=== PATIENT | male | born 1955 | race Caucasian/White ===

== ENCOUNTER 2016-10-26 08:50 | Day surgery (SDC) | payer MEDICARE, OTHER ==
--- NOTE | ~2016-10-26 | EGD ---
EGD REPORT [facility] [address] [address] NAME: DEISY PABON : 51 STATUS : REG [facility]#: [id number] AGE: 61 ADM/REG DATE : 10/26/16 MR#: [id number] REPORT SERV DATE: 10/26/16 DICTATED BY: BERTRAND MCCORMACK. DATE: 10/26/16 REPORT STATUS : Draft TRANSCRIBED BY: [facility] DATE: 10/26/16 Endoscopy Center Patient Name: Deisy Pabon Date of : 1955 Attending MD: BERTRAND MCCORMACK MD Procedure Date No Time: 10/26/2016 Procedure: Upper GI endoscopy Indications: Cirrhosis rule out esophageal varices. Portal HTN; splenomegaly; Omeprazole/propranolol. Patient Profile: Informed consent was obtained from the patient by me prior to the procedure. Risks, benefits, and alternatives were discussed including the risk of bleeding, perforation, infection, reaction to medicine, missed lesion, and cardiopulmonary complications. Referring MD: CATHY BAILEY Medicines: Monitored Anesthesia Care Complications: No immediate complications. Procedure: Pre-Anesthesia Assessment: - ASA Grade Assessment: III - A patient with severe systemic disease. After obtaining informed consent, the endoscope was passed under direct vision. Throughout the procedure, the patient's blood pressure, pulse, and oxygen saturations were monitored continuously. The GIF [id number] was introduced through the mouth, and advanced to the second part of duodenum. The endoscope was withdrawn with careful examination all mucosal surfaces including retroflexion stomach. The upper GI endoscopy was accomplished without difficulty. The patient tolerated the procedure well. Findings: The examined duodenum was normal. The gastric antrum was normal. Mild portal hypertensive gastropathy was found in the cardia, in the gastric fundus and in the gastric body. Incidental small benign-appearing polyps body, not removed. The examined esophagus was normal, no varices. Impression: - Normal examined duodenum. - Normal antrum. - Portal hypertensive gastropathy. - Normal esophagus. Recommendation: - Patient has a contact number available for EGD REPORT [address] [address] NAME: DEISY PABON : [birth year] STATUS : REG [facility]#: [id number] AGE: 61 ADM/REG DATE : 10/26/16 MR#: [id number] REPORT SERV DATE: 10/26/16 DICTATED BY: BERTRAND MCCORMACK DATE: 10/26/16 REPORT STATUS : Draft TRANSCRIBED BY: [facility] DATE: 10/26/16 emergencies. The signs and symptoms of potential delayed complications were discussed with the patient. Return to normal activities tomorrow. Written discharge instructions were provided to the patient. - Regular diet. - Continue present medications. - Repeat EGD one year Mem [facility] re: cirrhosis. - Schd office visit 3 months; he will see ENT. Procedure Code(s): --- Professional --- 78630, Esophagogastroduodenoscopy, flexible, transoral; diagnostic, including collection of specimen(s) by brushing or washing, when performed (separate procedure) Diagnosis Code(s): --- Professional --- K76.6, Portal hypertension K31.89, Other diseases of stomach and duodenum K74.60, Unspecified cirrhosis of liver CPT copyright 2013 [employer]. All rights reserved. The codes documented in this report are preliminary and upon senior group manager review may be revised to meet current compliance requirements. BERTRAND MCCORMACK MD 10/26/2016 10:43 AM This report has been signed electronically. Number of Addenda: 0 Note Initiated On: 10/26/2016 10:17 AM Scope Withdrawal Time 0 hours 0 minutes 0 seconds [address] [address]
[~2016-10-26 08:50] MED LIST: ALEVE220 MG PO; BELVIQ PO; BUM2 PO; CYANO1000T PO; DYAZIDE1 CAP PO; FARXIGA5 PO; GERITOL PO; GLUCOTROL5 PO; GLUCPH PO; GLUCXL2.5 PO; GLUCXL5 PO; I10 PO; LYRICA25 PO; MSCONT15 PO; MULTIVITAMI1 PO; NEUR100 PO; NEUR300 PO; OCALIVA PO; PERCOCET1 TA2 PO; PREVALITE4 G1 PO; PRILO PO; PRILOSEC40 MG PO; SPIRO25 PO; VICTOZA INJ; VICTOZA18 MG/3 ML SC; VITA10 PO; VITE PO; ZOL50 PO
== END 2016-10-26 23:59 | disposition home or self-care (01) ==
LOC: DMU 08:50
PROVIDERS: Internal Medicine Gastroenterology
PROC: 0DJ08ZZ Inspection of Upper Intestinal Tract, Via Natural or Artificial Opening Endoscopic (ICD-10-PCS; principal; 2016-10-26 09:30)
DX: K76.6 Portal hypertension (principal); K31.89 Other diseases of stomach and duodenum; K74.60 Unspecified cirrhosis of liver; E11.9 Type 2 diabetes mellitus without complications; G47.33 Obstructive sleep apnea (adult) (pediatric); K21.9 Gastro-esophageal reflux disease without esophagitis; I10 Essential (primary) hypertension; D64.9 Anemia, unspecified; Z90.49 Acquired absence of other specified parts of digestive tract
CPT/HCPCS: 82962

== ENCOUNTER 2016-12-07 13:13 | Inpatient (IN) | payer MEDICARE, OTHER ==
--- NOTE | ~2016-12-07 | OP ---
Record Of Operation [facility] [address] [place]. [address] NAME: DEISY WATKINS : 51 STATUS : DIS IN PAT#: [id number] AGE: 61 ADM/REG DATE : 12/07/16 MR#: [id number] REPORT SERV DATE: 12/10/16 DICTATED BY: ISA FISHMAN DATE: 12/09/16 REPORT STATUS : Draft TRANSCRIBED BY: MODL DATE: 12/09/16 DATE OF PROCEDURE: 12/09/2016 PROCEDURE: Intubation. REASON: Hypoxic respiratory failure. The patient is being transferred to [facility] for consideration of liver transplant. Family and patient both are aware of the need for intubation and are agreeable to the procedure. The patient has severe liver and kidney disease. The patient was monitored throughout the procedure and maintained an O2 saturation greater than 92%. He was pre-oxygenated for 100% oxygen. A total of 40 mg of IV etomidate followed by 25 mg of Nimbex or 2.5 mL were given for intubation. A GlideScope was used with a #4 blade. Vocal cords were well visualized. A #8 endotracheal tube was placed on the first attempt without difficulty. Bilateral breath sounds were heard. CO2 sensor changed appropriate color from blue to yellow, and chest x-ray is pending for confirmation of good placement of the endotracheal tube. /NISSA Isa Fishman M.D. / [id number] CC: MD Adri Aguilarh Melvi
--- NOTE | ~2016-12-07 | CN ---
Consultation Report [facility] [address] [place]. [address] NAME: DEISY WATKINS : 51 STATUS : ADM IN PAT#: [id number] AGE: 61 ADM/REG DATE : 12/07/16 MR#: [id number] REPORT SERV DATE: 12/08/16 DICTATED BY: DANIEL PEHLAN DATE: 12/08/16 REPORT STATUS : Draft TRANSCRIBED BY: MODL DATE: 12/08/16 CONSULTATION DATE OF CONSULTATION: HISTORY OF PRESENT ILLNESS: This is a 61-year-old white male, who was admitted on 12/07/2016 with complaints of diarrhea and some bloody stools and low blood pressure and not feeling well for the past several weeks. He is a patient Dr. Rajesh Flores. Because he has a diagnosis of GUTIERREZ and liver cirrhosis, he was on a study drug called Ocalivia, and he was under empiric trial. This drug had to get stopped while a couple of weeks ago. He was having problems of itchiness and elevated bilirubin. Despite active intervention by Dr. Flores, bilirubin still continued to arise. He was supposed to get a colonoscopy right before he had to come in to be admitted to the hospital, so that has not been done yet. He was in the IMCU when we were asked to take over care because of worsening hypotension, worsening renal failure with no urine output, shock liver, and metabolic acidosis. Dr. Flores had been in communication with the human resources assistant, and they are agreeing to assess him for dialysis/CRRT, and Dr. Flores also has been trying to get him transferred to a liver transplant center. For careful and thorough details of the outpatient management of cirrhosis, please see Dr. Flores's consult note. REVIEW OF SYSTEMS: The patient denies any current headache, dizziness, or syncope. No chest pain or cough but does have some short shortness of breath but no worse compared to the last couple of days. However, the nurse did have to escalate oxygen requirements from just a couple of liters of oxygen to the point where he is now on a 50% Venti mask. He was only saturating 85% on 6 L/minute prior to this. The patient states that his diarrhea slowed down, but he still has some nausea and abdominal pain. He has diffuse edema and jaundice. PAST MEDICAL HISTORY: Liver cirrhosis, GUTIERREZ, type 2 diabetes. PAST SURGICAL HISTORY: Knee replacement and appendectomy. ALLERGIES: NO KNOWN DRUG ALLERGIES. MEDICATIONS: Reviewed. SOCIAL HISTORY: No tobacco, alcohol, or illicit drugs. FAMILY HISTORY: Mother diabetes, father hypertension. Current IV drips include D5 half-normal with two amps of bicarb, dopamine drip, Levophed drip. PHYSICAL EXAMINATION: Consultation Report [address] [place]. [address] NAME: DEISY WATKINS : 51 STATUS : ADM IN PAT#: [id number] AGE: 61 ADM/REG DATE : 12/07/16 MR#: [id number] REPORT SERV DATE: 12/08/16 DICTATED BY: DANIEL PHELAN DATE: 12/08/16 REPORT STATUS : Draft TRANSCRIBED BY: NISSA DATE: 12/08/16 VITAL SIGNS: Per nursing flow sheet. GENERAL: Easily arousable. He was sleeping. He is not in any current distress. SKIN: Jaundiced. NEURO: GCS 15. Moves all extremities, cooperative. ENT: Normocephalic, atraumatic. Mallampati class 4. HEART: Regular rate and rhythm. No murmurs. LUNGS: A few coarse breath sounds at lung bases. No wheezes. No accessory muscle use. GI: Obese, soft, nontender, nondistended. No guarding, rebound, or rigidity. : Lara catheter in place with essentially no urine. EXTREMITIES: +2 bilateral pitting leg edema. LABORATORY DATA: Labs and radiology films reviewed up to this point. ASSESSMENT AND PLAN: 1. Hypotension. 2. Acute hypoxic respiratory failure. 3. 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 4. Acute liver injury. 5. Acute kidney injury with anuria. 6. Metabolic acidosis. 7. Hyponatremia. 8. Type 2 diabetes. The patient having worsening liver injury and renal injury. Hepatopulmonary syndrome is of heightened concern. The patient is going to need to be put on CRRT for continuous renal clearance. Nephrology has been notified. We will consult Vascular for access. He is currently on Levophed and dopamine. We will titrate drips to keep MAP greater than 65. He is also on midodrine as well. Dr. Flores was trying to get the patient over to a liver transplant center for further care and consideration for transplant. He is on Rocephin and vancomycin basically empirically. He has had no fevers. He shows no peritoneal signs to suggest peritonitis at this point. We will check a procalcitonin level. Blood cultures are already pending from yesterday. The patient is still on the bicarb drip. However, I will get two more amps of bicarb to push given his low serum bicarbonate on his metabolic panel. The patient is okay with intubation if needed. 35 minutes of critical care time. CEP/MODL Daniel Phelan, DO / [id number]
--- NOTE | ~2016-12-07 | OP ---
Record Of Operation [facility] [address] [place]. [address] NAME: DEISY WATKINS : 51 STATUS : ADM IN [facility]#: [id number] AGE: 61 ADM/REG DATE : 12/07/16 MR#: [id number] REPORT SERV DATE: 12/09/16 DICTATED BY: DOMINICK SILVERMAN DATE: 12/08/16 REPORT STATUS : Draft TRANSCRIBED BY: MODL DATE: 12/08/16 DATE OF PROCEDURE: 12/08/2016 PREOPERATIVE DIAGNOSIS: Acute kidney injury. POSTOPERATIVE DIAGNOSIS: Acute kidney injury. PROCEDURE: Right IJ Vas-Cath. SURGEON: Dominick Silverman M.D. COMMUNICATION LECTURER: None. ANESTHESIA: Local. INDICATIONS: The patient is a 61-year-old gentleman, who came in with liver failure and has acute kidney injury. He needs dialysis, so he was consented for intervention. DESCRIPTION OF PROCEDURE: After informed consent was obtained, the patient's right neck was prepped and draped in usual sterile fashion. Ultrasound-guided access was obtained of the right internal jugular vein. The ultrasound image was documented on the chart. I passed a wire centrally. I dilated the tract. I placed a 15-cm Vas-Cath. It was sutured in place. It was aspirated and flushed. A sterile dressing was applied. The patient tolerated the procedure well without any intraprocedural complications noted. A chest x-ray was ordered to confirm proper placement. GROOVING MACHINE OPERATOR/NISSA Dominick Silverman M.D. / [id number] CC: MD Adri Aguilarh DO Melvi
--- NOTE | ~2016-12-07 | CN ---
Consultation Report [facility] [address] [place]. [address] NAME: DEISY PABON : 51 STATUS : ADM IN PAT#: [id number] AGE: 61 ADM/REG DATE : 12/07/16 MR#: [id number] REPORT SERV DATE: 12/08/16 DICTATED BY: RAJESH FLORES DATE: 12/07/16 REPORT STATUS : Draft TRANSCRIBED BY: MODL DATE: 12/07/16 CONSULT DATE OF CONSULTATION: 12/07/2016 REASON: Acute liver failure with acute kidney injury. HISTORY: Mr. Pabon is a 61-year-old male, known to me for last few years. Has a GUTIERREZ-related cirrhosis. His cirrhosis had been well compensated until recently. When I saw him last time in August. His functions with stable bilirubin was a bit up since he was in trial by [employer] on medication from [employer] called Ocjames. At that time, bilirubin was little bit elevated. He was itching. I prescribed him Questran, which was apparently rejected due to trial protocol. I did not see him since then. Then, he came to see me about a week ago when I received call from Dr. Gonzalez's office that his bilirubin was 19. After that appointment, I started him on prednisone 20 mg suspecting drug-induced liver injury. In the meantime, he had MRI and MRCP done a couple of days prior to that, which did not show any obstruction or tumor. At that time, he was complaining of diarrhea and with the fear of dehydration, we discontinued his diuretic. His renal function was normal with creatinine of about 0.6 to 0.9. We received the lab work. Bilirubin was 31. Called him and increased his prednisone to 40 mg, which he has been for about one week. Came to see me in the office yesterday. After starting prednisone, his itching completely cleared, so he stopped his Prevalite also. In the meantime he remained on his diabetic medication, but according to , he continued having diarrhea. Stool studies were negative at Dr. Gonzalez's office for C diff, parasite, and culture. He was scheduled for colonoscopy today. I received a lab result, which indicated bilirubin was 35 and creatinine was 6 with bicarb 12, worsening liver functions. INR was 2.4. I called the patient. He was in the endoscopy suite for colonoscopy by Dr. Gonzalez. Called and discussed with Dr. Gonzalez. Suggested need to go to the emergency room and deferred colonoscopy decision to Dr. Gonzalez. Colonoscopy was canceled and he was sent to the emergency room, where his lab work showed creatinine of 7.9 and lipase of 12,000 with bilirubin of 37. CT scan without contrast was done, which showed ascites and there was no evidence of obstruction. I discussed with ER physician. Recommended giving albumin, 50 g Sandostatin, and IV fluids. The patient was admitted under Hospitalist Service. Discussed with Dr. aSntiago and started Sandostatin three times a day with midodrine and IV albumin. Deferred antibiotic at this point, and I also called [facility] and discussed with Dr. Dan, updated his situation, and planning to transfer him there tomorrow if the patient is stable. Overall, he has been about the same for the last couple of weeks. All the symptoms have been going on for about a month or so, but he did not seek any attention until 10 days ago when he had blood work when abnormality was noticed. The patient is also complaining of bright red blood per rectum due to diarrhea and suspected Consultation Report [address] [place]. [address] NAME: DEISY PABON : 51 STATUS : ADM IN [facility]#: [id number] AGE: 61 ADM/REG DATE : 12/07/16 MR#: [id number] REPORT SERV DATE: 12/08/16 DICTATED BY: RAJESH FLORES DATE: 12/07/16 REPORT STATUS : Draft TRANSCRIBED BY: MODL DATE: 12/07/16 due to hemorrhoids, though he has not had any recent endoscopy. GI bleed has not been ruled out. PAST MEDICAL HISTORY: GUTIERREZ-related cirrhosis, diabetes, obesity, hypertension, ascites, and portal hypertension. SURGICAL HISTORY: Knee replacement and appendectomy. ALLERGIES TO MEDICINE: None. MEDICINES AT HOME: Prednisone 40 mg daily, Ursodiol 500 twice a day, Benadryl as needed, Prevalite twice a day, diuretics have been discontinued about two weeks ago, oral hypoglycemic. SOCIAL HISTORY: Does not drink alcohol. Does not smoke tobacco or drug use. FAMILY HISTORY: Mother has diabetes. Father has high blood pressure. REVIEW OF SYSTEMS: As per HPI. Significant positives are fatigue, weakness, diarrhea, jaundice, dark urine, itching, shortness of breadth, distention of abdomen, lower extremity edema, fogginess and sluggishness, and dizziness. PHYSICAL EXAMINATION: GENERAL: Well developed, well nourished, obese, jaundiced, although not in distress. VITAL SIGNS: Blood pressure 120/70, pulse 90, respirations 24, pulse ox 95% to 96% on room air. EYES: Have icterus. Also has pallor. Pupils equally round and reactive to light. NECK: Supple. No JVD appreciated. LUNGS: Bilateral decreased air entry. Bibasilar rales. HEART: S1, S2 present. Distant heart sounds. No murmur appreciated. ABDOMEN: Obese. Distended. Ascites present. No signs of peritonitis. EXTREMITIES: Bilateral edema. No clubbing. NEURO: No focal deficits. Cranial nerves intact. Speech normal. LAB WORK: Shows WBC 16, platelets 235. INR 2.8. Sodium 129, potassium 5.5, chloride 98, bicarb 17, BUN 99, creatinine 7.95, total bilirubin 32, direct bilirubin 25, indirect 6.3, alkaline phosphatase 469, ALT 112, AST 22, lipase 50446, ammonia 19, BNP 38. ABG showed pH of 7.28, lactate was 3.7. Chest x-ray, negative chest x-ray. CT of the abdomen without contrast, cirrhotic liver, moderate ascites, cholelithiasis. IMPRESSION: 1. Acute liver failure, clinically drug-induced liver injury (Ocaliva) overmedication has been stopped about two weeks ago. 2. Acute kidney injury secondary to dehydration/hepatorenal syndrome. Started on Consultation Report [address] [address] NAME: DEISY PABON : 51 STATUS : ADM IN [facility]#: [id number] AGE: 61 ADM/REG DATE : 12/07/16 MR#: [id number] REPORT SERV DATE: 12/08/16 DICTATED BY: RAJESH FLORES DATE: 12/07/16 REPORT STATUS : Draft TRANSCRIBED BY: MODL DATE: 12/07/16 midodrine, Sandostatin, IV albumin, and IV fluid. 3. Complication of liver failure including coagulopathy, ascites. 4. Chronic blood loss anemia. 5. Diarrhea, unknown etiology. Definitely needs colonoscopy. Need to rule out systemic infection with CMV, HSV, and Clostridium difficile colitis. 6. Leukocytosis, likely related to acute liver injury. No signs of infection at this point. 7. Obesity. 8. Type 2 diabetes, on oral hypoglycemic agent, obviously not a candidate for any oral medicine at this point. SUGGESTIONS: 1. We will continue resuscitation with IV fluid, IV albumin. 2. Continue Sandostatin 200 mcg every eight hours along with midodrine 10 mg three times a day. 3. FFP for resuscitation and coagulopathy. 4. P.r.n. paracentesis. 5. Blood work every six to eight hour that has been ordered. If the patient is stable, we will try to transfer him to [facility]. Discussed with Dr. Dan, Dr. Zelaya is disaster response director tomorrow. We will update him in the morning. Again, the patient's condition is critical. Need liver transplant evaluation. Family is aware of the prognosis and progression. Borderline candidate for liver transplantation mainly due to weight and unknown cardiac status at this point. We will see him in the morning. CP/MODL Rajesh Flores M.D. / [id number] CC: MD Diane Aguilar DO
--- NOTE | ~2016-12-07 | HP ---
History And Physical [place] [address] [facility] [place]. [address] NAME: DEISY WATKINS : 51 STATUS : REG ER PAT#: [id number] AGE: 61 ADM/REG DATE : 12/07/16 MR#: [id number] REPORT SERV DATE: 12/07/16 DICTATED BY: BRETT PORTER DATE: 12/07/16 REPORT STATUS : Draft TRANSCRIBED BY: MODL DATE: 12/07/16 DATE OF ADMISSION: 12/07/2016 HISTORY OF PRESENT ILLNESS: This is a 61-year-old male, who presented to [facility] because of continuous diarrhea with bloody stools, hypotension, not feeling well, and he had bleeding episodes according to the patient and his , for the last six weeks. He was bleeding from his bottom and he was experiencing pain in his rectal area, so he went to see rubber and plastics worker where he was supposed to have lower endoscopy, but his brim pouncing machine operator Dr. Rajesh Flores called him yesterday and he recommended to come to [facility] because of his lab work which was done a day before was very abnormal and also he said that he needs to have evaluation at [facility]. The patient was also complaining of severe itching. He was dehydrated. He usually takes diuretics, but he stopped taking his diuretics because of this dehydration with constant blood with bowel movements on the toilet. He denies any chest pain. No shortness of breath. He is complaining of itching and abdominal discomfort, increased jaundice, but no abdominal pain. The patient reported that he was on experimental drug treatment O[place]iva for stage IV liver cirrhosis, stage IV liver disease, recommended by Dr. Rajesh Flores, and when Dr. Rajesh Flores was contacted by the emergency room physician, he thinks that there is a possibility that his elevated bilirubin and abnormal liver function tests could be related to this new experimental drug treatment. After 1 L of bolus, the patient's blood pressure improved, it is 113/60 now. There is a plan the patient to be observed in the CU bed. PAST MEDICAL HISTORY: Known for stage IV liver disease secondary to GUTIERREZ, worsening end- stage liver disease on experimental drug treatment, diabetes type 2. No history of strokes. No history of heart attacks. PAST SURGICAL HISTORY: Includes knee replacement and appendectomy. ALLERGIES: NO KNOWN DRUG ALLERGIES. HOME MEDICATIONS: The patient cannot recall all his home medications, but he said that he was on diuretics now. He stopped taking diuretics. SOCIAL HISTORY: Nonsmoker, nondrinker. No recreational drug use. FAMILY HISTORY: Mother with diabetes and father had hypertension. PHYSICAL EXAMINATION: GENERAL: A well-nourished, well-developed male, not in acute distress, resting quietly. VITAL SIGNS: Blood pressure initially was 83/45, now 113/60; temperature 97.8; heart rate 65; respiratory rate 16; oxygen saturation 95 on room air. HEENT: Head, atraumatic, normocephalic. Conjunctivae, jaundiced. Pupils are equal, reactive to light and accommodation. Extraocular muscles are intact. NECK: Supple. Trachea is midline. No supraclavicular or cervical lymphadenopathy. History And Physical [address] [address] NAME: DEISY WATKINS : 51 STATUS : REG ER PAT#: [id number] AGE: 61 ADM/REG DATE : 12/07/16 MR#: [id number] REPORT SERV DATE: 12/07/16 DICTATED BY: BRETT PORTER DATE: 12/07/16 REPORT STATUS : Draft TRANSCRIBED BY: NISSA DATE: 12/07/16 LUNGS: Diminished breath sounds bilaterally. Decreased respiratory effort. CARDIOVASCULAR SYSTEM: Regular rate and rhythm. PMI is not displaced. ABDOMEN: Distended, soft to palpation. There is a positive fluid wave. Slightly diminished bowel sounds. EXTREMITIES: No clubbing, cyanosis, 2+ edema. NEUROLOGIC: He is awake, alert, oriented in time, place, and person. Muscle strength is 5/5 bilaterally on upper and lower extremities. SKIN: Slightly decreased turgor and jaundiced. LABORATORY RESULTS: White count 16.4, hemoglobin 15.7, hematocrit 43.6, platelet count 235. PTT 46.6, PT 29.1, INR 2.8. Sodium 129, potassium 5.5, chloride 98, carbon dioxide 17, BUN 99, creatinine 7.95, blood sugar 77. Total bilirubin 32.2, direct bilirubin 25.9, indirect 6.3. Alkaline phosphatase 469, ALT 112, AST 222. Lipase 12,262. Ammonia level was 19. BNP was 39.8. ABG showed pH of 7.28, pCO2 28, PO2 81, oxygen saturation 94.2 on room air. Lactic acid level was 3.7. Chest x-ray show aspiration, otherwise, negative chest x-ray. CT of the abdomen and pelvis without contrast done today on 12/07/2016 in the emergency room showed cirrhotic appearance of the liver with moderate ascites throughout the abdomen and pelvis, cholelithiasis, gallbladder appears mildly thickened likely due to underdistention and hypoproteinemia; however, if there is a concern for acute gallbladder pathology, this may be better evaluated with ultrasound or HIDA scan, although there is mild edema throughout the abdominal fat planes likely related to hypoproteinemia. There does appear to be slightly more focal edema around the pancreatic head suggesting correlation with pancreatic enzymes to exclude acute pancreatitis. Low attenuation of the lesion measuring 36 mm involving the lower pole of the left kidney likely representing a cyst, but not well characterized on this examination due to artifact from contact on the patient's abdominal wall as it was described above. It is indicated this can be characterized on a followup dynamic in CT or MRI. EKG showed mild sinus bradycardia with a rate of 57, slightly prolonged QT interval, and inferior infarction of undetermined age. ASSESSMENT AND PLAN: 1. This is a 61-year-old male with past medical history of stage IV liver disease secondary to nonalcoholic steatohepatitis/liver cirrhosis, he is on experimental drug treatment for his liver cirrhosis, presented with hypotension likely secondary to dehydration. 2. Acute kidney failure likely secondary to dehydration. 3. Diarrhea with bloody stools going on for the last six weeks, worsening. 4. Elevated bilirubin with elevated liver enzymes. 5. Leukocytosis. Since the patient was hypotensive, he is responding to IV fluids, we need to monitor his blood pressure in the intermediate care unit. He just got 1 L of IV fluid bolus. We are going to send him to IM. In the same time, I spoke with emergency room physician, Dr. Enriquez and he said that he is going to have a PICC line there. Regarding his fluids, he is currently on normal saline. Dr. Acosta, senior industrial engineer, consulted for his acute kidney injury. He recommended to change him to half normal saline with two ampules of bicarbonate after first liter of fluids and to consult him. History And Physical [place] [address] [place]. [address] NAME: DEISY WATKINS : 51 STATUS : REG ER PAT#: [id number] AGE: 61 ADM/REG DATE : 12/07/16 MR#: [id number] REPORT SERV DATE: 12/07/16 DICTATED BY: BRETT PORTER DATE: 12/07/16 REPORT STATUS : Draft TRANSCRIBED BY: MODL DATE: 12/07/16 Elevated liver enzymes as well as pancreatic enzymes, could be related to his experimental drug treatment as well as there is a possibility of gallstones. We will order ultrasound on the liver and gallbladder. Elevated PT, PTT, INR related to his end-stage liver disease. Monitor closely. Diarrhea with bloody stools. We will check his stool for C diff for white cells and stool cultures in case if diarrhea continues. I also spoke with Dr. Rajesh Flores who is his brim pouncing machine operator and he recommended the patient to be started on Sandostatin 200 mcg subcu three times daily as well as ProAmatine 5 mg three times daily and albumin 50 g IV q.8 h. as well as Ursodiol and rifaximin. Regarding leukocytosis, I also discussed about this with Dr. Rajesh Flores. He thinks it could be stress leukocytosis and he also specifically mentioned to check the patient for C diff. He recommended to hold for antibiotics right now, and if necessary, antibiotic to be started, it should not be quinolones, most preferable will be Rocephin, but right now still needs to be checked for C diff to find out if this is related to C diff. There is a plan this patient to be transferred to [facility] and it may happen tomorrow. If the patient's blood pressure will be stable, there is a possibility he may be moved to the telemetry bed likely tomorrow morning. We will also consult senior industrial engineer and we will consult Dr. Rajesh Flores to see the patient today as well as we will check his morning labs including liver enzymes, bilirubin, and white count. We will monitor his hemoglobin periodically as well as put him on Protonix 40 IV b.i.d. Right now, I do not see any severe bleeding, he looks stable. MG/MODL Brett Porter M.D. / [id number] CC: Diane Ogden DO
--- NOTE | ~2016-12-07 | CN ---
Consultation Report [facility] [address] [place]. [address] NAME: DEISY PABON : 51 STATUS : ADM IN PAT#: [id number] AGE: 61 ADM/REG DATE : 12/07/16 MR#: [id number] REPORT SERV DATE: 12/07/16 DICTATED BY: DATE: REPORT STATUS : Draft TRANSCRIBED BY: MODL DATE: 12/07/16 CONSULTATION DATE OF CONSULTATION: REASON FOR CONSULTATION: Acute kidney injury. HISTORY OF PRESENT ILLNESS: Mr. Pabon is a very pleasant 61-year-old white male with history of GUTIERREZ cirrhosis, most recently been on a research study at [facility] by Dr. Gonzalez. He stopped the medications several weeks back. He has no history of kidney disease in the past. In fact, his creatinine in September was 0.6. He reports six weeks of bright red blood per rectum and diarrhea at least 10 to 20 times daily with liquid stools. No fevers or chills. No shortness of breath. He does have dyspnea on exertion. No chest pain, tightness, or pressure. In regard to urination, he has had significant decrease in his urination since he has been having diarrhea. No nausea or vomiting. He was due to get a colonoscopy today to evaluate for this bright red blood per rectum and diarrhea, but labs were drawn yesterday by Dr. Rajesh Flores, and he was instructed to come to the emergency room instead. Here in the emergency room, he was found to have a creatinine of 7.9, he was found to be acidotic with pH of 7.28, sodium 129, potassium of 5.5, and we were asked to see him in consultation. It is of note, his bilirubin is up to 32 with lipase of 12. CT is negative for any obstructive process. He has some benign renal cysts. PAST MEDICAL HISTORY: GUTIERREZ, cirrhosis, diabetes, hyperlipidemia, hypertension, kidney stones, anemia, and appendectomy. ALLERGIES: NONE. MEDICATIONS AT HOME: Cipro, Forxiga, Glucotrol, Medrol, Flagyl, Prilosec, Zofran, prednisone, propranolol, Zoloft, or Ursodiol. FAMILY MEDICAL HISTORY: No end-stage renal disease. REVIEW OF SYSTEMS: 12-point review of systems is obtained and negative with the exception of that in the HPI. PHYSICAL EXAMINATION: VITAL SIGNS: Temperature 97.8, blood pressure 95/57, pulse 57, respiratory rate 16, and O2 saturation is 95%. GENERAL: This is an ill-appearing white male. He is awake. He is alert. He is oriented x3, in no acute distress. Answers questions appropriately. HEENT: Normocephalic and atraumatic. Conjunctivae clear. Sclerae are positive for icterus. Oral mucosa is very dry. NECK: Thick. I did not see neck vein distention. RESPIRATIONS: Even and unlabored breath sounds. Clear to auscultation. HEART: Rate is regular. No murmur, rub, or gallop. Consultation Report [address] [place]. [address] NAME: DEISY PABON : 51 STATUS : ADM IN [facility]#: [id number] AGE: 61 ADM/REG DATE : 12/07/16 MR#: [id number] REPORT SERV DATE: 12/07/16 DICTATED BY: DATE: REPORT STATUS : Draft TRANSCRIBED BY: MODL DATE: 12/07/16 ABDOMEN: Obese, soft, nontender. BACK: Did not examine back. EXTREMITIES: With 2+ pitting edema below the knees. Minimal edema above the knees. SKIN: Jaundiced. No unusual rashes. NEUROLOGIC: Generalized weakness. Mood and affect are flat, but appropriate. PERTINENT LABS AND X-RAYS: He had an ABG with pH of 7.28, pCO2 of 28, pO2 of 81, bicarb of 13. Sodium 129, potassium 5.5, chloride 98, CO2 of 17, BUN of 99, creatinine of 7.9, calcium 7.8, albumin of 1.9, bilirubin 32, alkaline phosphatase 469. SGOT of 222. SGPT of 112. Lipase of 12,262. Chest x-ray, negative. Lactic acid of 3.7. CT with chronic cirrhotic changes, moderate ascites, cholelithiasis, low-attenuation lesion at the lower pole of left kidney, but no obstructive process. IMPRESSION: 1. Acute kidney injury. 2. Diarrhea. 3. Gastrointestinal bleed. 4. Nonalcoholic steatohepatitis cirrhosis. 5. Hypotension. 6. Metabolic acidosis. 7. Diabetes. 8. Anemia. PLAN: Acute kidney injury. This likely due to dehydration or a hepatorenal syndrome. We are going to hydrate overnight, start midodrine, Sandostatin, and albumin. Follow labs and I's and O's. We will follow along with you. Thank you for the consultation. RUBI/NISSA RAHUL Bryan / [id number] CC: Diane Ogden DO
[2016-12-07 12:13] LABS: BASOPHILS 0.4 %; BASOPHILS ABSOLUTE 0.06 10/3/uL (0.0-0.16); EOSINOPHILS ABSOLUTE 0.17 10/3/uL (0.0-0.53); ER CBC TAT 0 Hrs 10 Mins; HEMATOCRIT 43.6 % (40.0-51.0); HEMOGLOBIN 15.7 g/dL (13.6-17.8); IMMATURE GRANULOCYTES 5.2 %; LYMPHOCYTES 7.1 %; LYMPHOCYTES ABSOLUTE 1.17 10/3/uL (0.67-4.30); MEAN CORPUSCULAR HEMOGLOB 33.3 pg (26.0-34.0); MEAN CORPUSCULAR VOLUME 92.6 fL (80-100); MEAN PLATELET VOLUME 9.5 fL (9.2-13.0); MONOCYTES 10.3 %; NEUTROPHILS ABSOLUTE 12.47 10/3/uL (2.02-8.40); NUCLEATED RED BLOOD CELLS 0.7 /100WBC (0-0); PLATELET COUNT 235 10/3/uL (150-400); RBC DISTRIBUTION WIDTH 17.5 % (12.0-16.0); RED CELL COUNT 4.71 10/6/uL (4.7-6.1); WHITE BLOOD CELLS 16.4 10/3/uL (4.5-10.5)
[2016-12-07 12:14] LABS: IMMATURE GRANULOCYTES ABSOLUTE 0.86 10/3/uL (0.0-0.11); MANUAL DIFF NO %
[2016-12-07 12:15] LABS: INTERNATIONAL NORMAL RATI 2.8 UNITS (-); PARTIAL THROMBO TIME 46.6 SEC (22.5-37.2); PROTIME (NOT ORD) 29.1 SEC (12.0-14.5)
[2016-12-07 12:29] LABS: ANISOCYTOSIS 1+ (5-10/OIF) (0-5/OIF); EOSINOPHILS 3 %; EOSINOPHILS ABSOLUTE (CALC) 0.49 10/3/uL (0.0-0.53); ER DIFF TAT 0 Hrs 26 Mins; LYMPHOCYTES 3 %; LYMPHOCYTES ABSOLUTE (CALC) 0.49 10/3/uL (0.67-4.30); MONOCYTES 6 %; MONOCYTES ABSOLUTE (CALC) 0.98 10/3/uL (0.21-1.20); NEUTROPHILS ABSOLUTE (CALC) 14.43 10/3/uL (2.02-8.40); PLATELET ESTIMATE ADQ (ADEQUATE); SEGMENTED NEUTROPHIL (0) 88 %; TOTAL NUCLEATED CELLS 100
[2016-12-07 12:31] LABS: CALCIUM, SERUM 7.8 MG/DL (8.5-10.4); SGOT(AST) 222 U/L (5-40); SGPT(ALT) 112 U/L (5-65)
[2016-12-07 12:32] LABS: A/G RATIO 0.5 (0.7-1.9); ALBUMIN 1.9 G/DL (3.5-5.0); ALKALINE PHOSPHATASE 469 U/L (45-117); BUN (BLOOD UREA NITROGEN) 99 MG/DL (6-23); CHLORIDE, SERUM 98 MMOL/L (96-112); CO2 (CARBON DIOXIDE) 17 MMOL/L (24-34); CREATININE 7.95 MG/DL (0.70-1.30); DIRECT BILIRUBIN 25.9 MG/DL (0.0-0.4); GFR AFRICAN AMERICAN 8 ML/MIN (>=60); GFR NON AFRICAN AMERICAN 7 ML/MIN (>=60); GLOBULIN 3.8 G/DL (2.5-4.1); GLUCOSE, SERUM 77 MG/DL (60-99); INDIRECT BILIRUBIN(NOT ORDER) 6.3 MG/DL (0.1-0.9); POTASSIUM, SERUM 5.5 MMOL/L (3.5-5.3); SODIUM, SERUM 129 MMOL/L (135-148); TOTAL BILIRUBIN 32.2 MG/DL (0-1.2); TOTAL PROTEIN 5.7 G/DL (6.0-8.5)
[2016-12-07 13:20] LABS: B NATRIURETIC PEPTIDE (BNP) 39.8 PG/ML (< 100.0)
[2016-12-07 13:34] LABS: LACTATE 3.7 MMOL/L (0.3-2.4)
[2016-12-07 14:42] LABS: ALLENS TEST Pos; CARBOXYHEMOGLOBIN 1.4 % (0-3); HEMOBLOGIN CONTENT 14.2 G/DL (14-18); INSTRUMENT SERIAL # 8083; METHEMOGLOBIN 0.3 % (0-3); O2 CONTENT 18.5 VOL% (18-24); OPERATOR ID 35784; PCO2 (CO2 TENSION) 28 MMHG (35-45); PO2 (O2 TENSION) 81 MMHG (79-93); SAMPLE Arterial; pH 7.28 (7.37-7.43)
[2016-12-07] MEDS ORDERED: URSO FORTE500 MG PO (14:51)
[2016-12-07] MEDS ORDERED: MEDROLPAK4 PO (14:52)
[2016-12-07] MEDS ORDERED: CIP5 PO (14:53)
[2016-12-07] MEDS ORDERED: ZOL50 PO (14:53)
[2016-12-07] MEDS ORDERED: FLAG500TAB PO (14:54)
[2016-12-07] MEDS ORDERED: RECTICARE TOP (14:56)
[2016-12-07] MEDS ORDERED: GLUCOTROL5 PO (14:57)
[2016-12-07] MEDS ORDERED: I10 PO (14:57)
[2016-12-07] MEDS ORDERED: ZOFRAN8 PO (14:58)
[2016-12-07] MEDS ORDERED: P10 PO (14:58)
[2016-12-07] MEDS ORDERED: FARXIGA5 PO (14:58)
[2016-12-07] MEDS ORDERED: PRILO PO (14:58)
[2016-12-07 22:57] LABS: HEMOGLOBIN 14.1 g/dL (13.6-17.8)
[2016-12-07 22:58] LABS: CPK 218 U/L (0-200)
[2016-12-07 22:59] LABS: HEMATOCRIT 38.6 % (40.0-51.0)
[2016-12-08 05:29] LABS: HEMATOCRIT 39.9 % (40.0-51.0); HEMOGLOBIN 14.7 g/dL (13.6-17.8); MEAN CORPUS HGB CONC 36.8 g/dL (32.0-36.0); MEAN CORPUSCULAR HEMOGLOB 33.8 pg (26.0-34.0); MEAN CORPUSCULAR VOLUME 91.7 fL (80-100); MEAN PLATELET VOLUME 9.4 fL (9.2-13.0); NUCLEATED RED BLOOD CELLS 0.8 /100WBC (0-0); PLATELET COUNT 240 10/3/uL (150-400); RBC DISTRIBUTION WIDTH 17.9 % (12.0-16.0); RED CELL COUNT 4.35 10/6/uL (4.7-6.1)
[2016-12-08 05:30] LABS: MANUAL DIFF YES %; WHITE BLOOD CELLS 24.6 10/3/uL (4.5-10.5)
[2016-12-08 05:49] LABS: ALBUMIN 2.2 G/DL (3.5-5.0); ALKALINE PHOSPHATASE 473 U/L (45-117); BUN (BLOOD UREA NITROGEN) 97 MG/DL (6-23); CALCIUM, SERUM 7.5 MG/DL (8.5-10.4); CHLORIDE, SERUM 99 MMOL/L (96-112); GLUCOSE, SERUM 90 MG/DL (60-99); POTASSIUM, SERUM 5.9 MMOL/L (3.5-5.3); SGPT(ALT) 1002 U/L (5-65); SODIUM, SERUM 128 MMOL/L (135-148)
[2016-12-08 05:51] LABS: A/G RATIO 0.7 (0.7-1.9); CREATININE 8.51 MG/DL (0.70-1.30); GFR AFRICAN AMERICAN 7 ML/MIN (>=60); GFR NON AFRICAN AMERICAN 6 ML/MIN (>=60); GLOBULIN 3.2 G/DL (2.5-4.1); TOTAL PROTEIN 5.4 G/DL (6.0-8.5)
[2016-12-08 06:03] LABS: SGOT(AST) 2904 U/L (5-40)
[2016-12-08 06:04] LABS: TOTAL BILIRUBIN 33.6 MG/DL (0-1.2)
[2016-12-08 06:05] LABS: CO2 (CARBON DIOXIDE) 9 MMOL/L (24-34)
[2016-12-08 07:33] LABS: BAND NEUTROPHILS 9 %; BURR CELLS 3+ (>30/OIF) (0-2/OIF); EOSINOPHILS 1 %; EOSINOPHILS ABSOLUTE (CALC) 0.25 10/3/uL (0.0-0.53); MONOCYTES 8 %; MONOCYTES ABSOLUTE (CALC) 1.97 10/3/uL (0.21-1.20); NEUTROPHILS ABSOLUTE (CALC) 22.39 10/3/uL (2.02-8.40); PLATELET ESTIMATE ADQ (ADEQUATE); SEGMENTED NEUTROPHIL (0) 82 %; TOTAL NUCLEATED CELLS 100
[2016-12-08 08:41] LABS: GLYCOHEMOGLOBIN (HbA1c) 5.2 % (4.7-6.1)
[2016-12-08 10:12] LABS: CHLORIDE, SERUM 98 MMOL/L (96-112); GLUCOSE, SERUM 91 MG/DL (60-99); POTASSIUM, SERUM 5.7 MMOL/L (3.5-5.3); SODIUM, SERUM 132 MMOL/L (135-148)
[2016-12-08 10:15] LABS: BUN (BLOOD UREA NITROGEN) 101 MG/DL (6-23); CO2 (CARBON DIOXIDE) 14 MMOL/L (24-34)
[2016-12-08 10:16] LABS: CREATININE 8.44 MG/DL (0.70-1.30); GFR AFRICAN AMERICAN 7 ML/MIN (>=60); GFR NON AFRICAN AMERICAN 6 ML/MIN (>=60)
[2016-12-08 12:32] LABS: HEMOGLOBIN 12.6 g/dL (13.6-17.8); MEAN CORPUS HGB CONC 35.2 g/dL (32.0-36.0); MEAN CORPUSCULAR HEMOGLOB 33.1 pg (26.0-34.0); PLATELET COUNT 220 10/3/uL (150-400); RED CELL COUNT 3.81 10/6/uL (4.7-6.1)
[2016-12-08 12:33] LABS: HEMATOCRIT 35.8 % (40.0-51.0); MANUAL DIFF YES %; WHITE BLOOD CELLS 25.5 10/3/uL (4.5-10.5)
[2016-12-08 12:43] LABS: PROTIME (NOT ORD) 30.5 SEC (12.0-14.5)
[2016-12-08 13:01] LABS: CALCIUM, SERUM 7.3 MG/DL (8.5-10.4); CHLORIDE, SERUM 97 MMOL/L (96-112); CO2 (CARBON DIOXIDE) 14 MMOL/L (24-34); GLUCOSE, SERUM 76 MG/DL (60-99); POTASSIUM, SERUM 5.8 MMOL/L (3.5-5.3); SGOT(AST) 2969 U/L (5-40); SGPT(ALT) 1155 U/L (5-65); SODIUM, SERUM 131 MMOL/L (135-148)
[2016-12-08 13:02] LABS: ALBUMIN 2.8 G/DL (3.5-5.0); ALKALINE PHOSPHATASE 397 U/L (45-117); BUN (BLOOD UREA NITROGEN) 103 MG/DL (6-23); CREATININE 8.62 MG/DL (0.70-1.30); GFR AFRICAN AMERICAN 7 ML/MIN (>=60); GFR NON AFRICAN AMERICAN 6 ML/MIN (>=60); TOTAL BILIRUBIN 33.8 MG/DL (0-1.2)
[2016-12-08 13:03] LABS: A/G RATIO 1.1 (0.7-1.9); GLOBULIN 2.5 G/DL (2.5-4.1); TOTAL PROTEIN 5.3 G/DL (6.0-8.5)
[2016-12-08 13:30] LABS: BAND NEUTROPHILS 10 %; EOSINOPHILS 1 %; EOSINOPHILS ABSOLUTE (CALC) 0.26 10/3/uL (0.0-0.53); IMMATURE GRANS ABSOLUTE (CALC) 0.51 10/3/uL (0.0-0.11); LYMPHOCYTES 3 %; LYMPHOCYTES ABSOLUTE (CALC) 0.77 10/3/uL (0.67-4.30); METAMYELOCYTES 2 %; MONOCYTES 6 %; MONOCYTES ABSOLUTE (CALC) 1.53 10/3/uL (0.21-1.20); NEUTROPHILS ABSOLUTE (CALC) 22.44 10/3/uL (2.02-8.40); PLATELET ESTIMATE ADQ (ADEQUATE); SEGMENTED NEUTROPHIL (0) 78 %; TOTAL NUCLEATED CELLS 100
[2016-12-08 13:31] LABS: ANISOCYTOSIS 1+ (5-10/OIF) (0-5/OIF)
[2016-12-08 16:30] LABS: HEMATOCRIT 33.7 % (40.0-51.0); HEMOGLOBIN 12.1 g/dL (13.6-17.8); MANUAL DIFF YES %; MEAN CORPUS HGB CONC 35.9 g/dL (32.0-36.0); MEAN CORPUSCULAR HEMOGLOB 33.7 pg (26.0-34.0); MEAN CORPUSCULAR VOLUME 93.9 fL (80-100); MEAN PLATELET VOLUME 9.9 fL (9.2-13.0); PLATELET COUNT 195 10/3/uL (150-400); RBC DISTRIBUTION WIDTH 17.9 % (12.0-16.0); RED CELL COUNT 3.59 10/6/uL (4.7-6.1); WHITE BLOOD CELLS 23.1 10/3/uL (4.5-10.5)
[2016-12-08 16:38] LABS: CALCIUM, SERUM 7.1 MG/DL (8.5-10.4); CHLORIDE, SERUM 98 MMOL/L (96-112); POTASSIUM, SERUM 5.8 MMOL/L (3.5-5.3); SODIUM, SERUM 128 MMOL/L (135-148)
[2016-12-08 16:40] LABS: BUN (BLOOD UREA NITROGEN) 102 MG/DL (6-23); CO2 (CARBON DIOXIDE) 12 MMOL/L (24-34)
[2016-12-08 16:41] LABS: ALBUMIN 3.4 G/DL (3.5-5.0); CREATININE 8.96 MG/DL (0.70-1.30); GFR AFRICAN AMERICAN 7 ML/MIN (>=60); GFR NON AFRICAN AMERICAN 6 ML/MIN (>=60); GLUCOSE, SERUM 52 MG/DL (60-99)
[2016-12-08 16:43] LABS: PHOSPHORUS, SERUM > 18.0 MG/DL (2.5-4.5)
[2016-12-08 16:46] LABS: BAND NEUTROPHILS 22 %; EOSINOPHILS 2 %; EOSINOPHILS ABSOLUTE (CALC) 0.46 10/3/uL (0.0-0.53); LYMPHOCYTES 4 %; LYMPHOCYTES ABSOLUTE (CALC) 0.92 10/3/uL (0.67-4.30); MONOCYTES 4 %; MONOCYTES ABSOLUTE (CALC) 0.92 10/3/uL (0.21-1.20); NEUTROPHILS ABSOLUTE (CALC) 20.79 10/3/uL (2.02-8.40); SEGMENTED NEUTROPHIL (0) 68 %; TOTAL NUCLEATED CELLS 100
[2016-12-08 16:47] LABS: ANISOCYTOSIS 1+ (5-10/OIF) (0-5/OIF); BURR CELLS 1+ (3-10/OIF) (0-2/OIF); PLATELET ESTIMATE ADQ (ADEQUATE)
[2016-12-08 19:29] LABS: HEMATOCRIT 32.8 % (40.0-51.0); HEMOGLOBIN 11.7 g/dL (13.6-17.8)
[2016-12-08 19:41] LABS: SGOT(AST) 3320 U/L (5-40)
[2016-12-08 19:43] LABS: ALBUMIN 3.2 G/DL (3.5-5.0); CALCIUM, SERUM 7.2 MG/DL (8.5-10.4); CHLORIDE, SERUM 97 MMOL/L (96-112); POTASSIUM, SERUM 5.8 MMOL/L (3.5-5.3); SGPT(ALT) 1229 U/L (5-65); SODIUM, SERUM 128 MMOL/L (135-148)
[2016-12-08 19:44] LABS: BUN (BLOOD UREA NITROGEN) 106 MG/DL (6-23); CO2 (CARBON DIOXIDE) 13 MMOL/L (24-34); GLUCOSE, SERUM 72 MG/DL (60-99)
[2016-12-08 19:45] LABS: ALKALINE PHOSPHATASE 409 U/L (45-117); TOTAL BILIRUBIN 34.6 MG/DL (0-1.2)
[2016-12-08 19:46] LABS: GFR AFRICAN AMERICAN 6 ML/MIN (>=60); GFR NON AFRICAN AMERICAN 6 ML/MIN (>=60); PHOSPHORUS, SERUM > 18.0 MG/DL (2.5-4.5)
[2016-12-08 19:47] LABS: A/G RATIO 1.5 (0.7-1.9); GLOBULIN 2.1 G/DL (2.5-4.1); TOTAL PROTEIN 5.3 G/DL (6.0-8.5)
[2016-12-08 20:37] LABS: ALLENS TEST Pos; BE (BASE EXCESS) -14.2 MEQ/L (0 +/- 2.5); CARBOXYHEMOGLOBIN 1.1 % (0-3); DEVICE HFNC; HEMOBLOGIN CONTENT 12.8 G/DL (14-18); INSTRUMENT SERIAL # 35151; METHEMOGLOBIN 0.7 % (0-3); O2 CONTENT 17.4 VOL% (18-24); OPERATOR ID 23712; PCO2 (CO2 TENSION) 25 MMHG (35-45); PO2 (O2 TENSION) 114 MMHG (79-93); SAMPLE Arterial; pH 7.27 (7.37-7.43)
[2016-12-09 04:08] LABS: HEMATOCRIT 33.3 % (40.0-51.0); HEMOGLOBIN 11.8 g/dL (13.6-17.8); MEAN CORPUS HGB CONC 35.4 g/dL (32.0-36.0); MEAN CORPUSCULAR HEMOGLOB 33.5 pg (26.0-34.0); MEAN CORPUSCULAR VOLUME 94.6 fL (80-100); MEAN PLATELET VOLUME 9.8 fL (9.2-13.0); PLATELET COUNT 158 10/3/uL (150-400); RED CELL COUNT 3.52 10/6/uL (4.7-6.1); WHITE BLOOD CELLS 22.6 10/3/uL (4.5-10.5)
[2016-12-09 04:09] LABS: MANUAL DIFF YES %
[2016-12-09 04:15] LABS: INTERNATIONAL NORMAL RATI 4.9 UNITS (-)
[2016-12-09 04:18] LABS: PROTIME (NOT ORD) 45.1 SEC (12.0-14.5)
[2016-12-09 04:33] LABS: BAND NEUTROPHILS 27 %; IMMATURE GRANS ABSOLUTE (CALC) 0.45 10/3/uL (0.0-0.11); LYMPHOCYTES 2 %; LYMPHOCYTES ABSOLUTE (CALC) 0.45 10/3/uL (0.67-4.30); METAMYELOCYTES 2 %; MONOCYTES 6 %; MONOCYTES ABSOLUTE (CALC) 1.36 10/3/uL (0.21-1.20); NEUTROPHILS ABSOLUTE (CALC) 20.34 10/3/uL (2.02-8.40); PLATELET ESTIMATE ADQ (ADEQUATE); SEGMENTED NEUTROPHIL (0) 63 %; TOTAL NUCLEATED CELLS 100
[2016-12-09 04:34] LABS: ANISOCYTOSIS 1+ (5-10/OIF) (0-5/OIF)
[2016-12-09 04:40] LABS: ALBUMIN 3.3 G/DL (3.5-5.0); CHLORIDE, SERUM 99 MMOL/L (96-112); GLUCOSE, SERUM 67 MG/DL (60-99); POTASSIUM, SERUM 5.4 MMOL/L (3.5-5.3); SGPT(ALT) 1689 U/L (5-65); SODIUM, SERUM 132 MMOL/L (135-148)
[2016-12-09 04:42] LABS: BUN (BLOOD UREA NITROGEN) 87 MG/DL (6-23); CALCIUM, SERUM 6.7 MG/DL (8.5-10.4); CO2 (CARBON DIOXIDE) 14 MMOL/L (24-34); CREATININE 7.55 MG/DL (0.70-1.30); GFR AFRICAN AMERICAN 8 ML/MIN (>=60); GFR NON AFRICAN AMERICAN 7 ML/MIN (>=60); PHOSPHORUS, SERUM 8.2 MG/DL (2.5-4.5); TOTAL PROTEIN 5.4 G/DL (6.0-8.5)
[2016-12-09 04:43] LABS: ALKALINE PHOSPHATASE 467 U/L (45-117)
[2016-12-09 05:20] LABS: SGOT(AST) 4573 U/L (5-40)
[2016-12-09 05:32] LABS: DIRECT BILIRUBIN 25.4 MG/DL (0.0-0.4)
[2016-12-09 05:54] LABS: TOTAL BILIRUBIN 37.4 MG/DL (0-1.2)
[2016-12-09 10:30] LABS: HEMATOCRIT 33.3 % (40.0-51.0); MEAN CORPUSCULAR HEMOGLOB 33.5 pg (26.0-34.0); MEAN PLATELET VOLUME 9.5 fL (9.2-13.0); NUCLEATED RED BLOOD CELLS 0.8 /100WBC (0-0); PLATELET COUNT 151 10/3/uL (150-400); RBC DISTRIBUTION WIDTH 18.2 % (12.0-16.0); RED CELL COUNT 3.58 10/6/uL (4.7-6.1); WHITE BLOOD CELLS 22.9 10/3/uL (4.5-10.5)
[2016-12-09 10:31] LABS: MANUAL DIFF YES %
[2016-12-09 10:36] LABS: CHLORIDE, SERUM 98 MMOL/L (96-112); POTASSIUM, SERUM 5.3 MMOL/L (3.5-5.3); SODIUM, SERUM 131 MMOL/L (135-148)
[2016-12-09 10:38] LABS: BUN (BLOOD UREA NITROGEN) 81 MG/DL (6-23); CALCIUM, SERUM 6.8 MG/DL (8.5-10.4); CO2 (CARBON DIOXIDE) 15 MMOL/L (24-34); GLUCOSE, SERUM 83 MG/DL (60-99)
[2016-12-09 10:39] LABS: CREATININE 7.05 MG/DL (0.70-1.30); GFR AFRICAN AMERICAN 9 ML/MIN (>=60); GFR NON AFRICAN AMERICAN 8 ML/MIN (>=60)
[2016-12-09 10:50] LABS: BAND NEUTROPHILS 17 %; LYMPHOCYTES 2 %; LYMPHOCYTES ABSOLUTE (CALC) 0.46 10/3/uL (0.67-4.30); MONOCYTES 2 %; MONOCYTES ABSOLUTE (CALC) 0.46 10/3/uL (0.21-1.20); NEUTROPHILS ABSOLUTE (CALC) 21.98 10/3/uL (2.02-8.40); SEGMENTED NEUTROPHIL (0) 79 %; TOTAL NUCLEATED CELLS 100
[2016-12-09 10:51] LABS: ANISOCYTOSIS 1+ (5-10/OIF) (0-5/OIF); PLATELET ESTIMATE ADQ (ADEQUATE)
[2016-12-09 10:52] LABS: POLYCHROMASIA 1+ (2-5/OIF) (0-1/OIF); TOXIC GRANULATION 2+; VACUOLATED NEUTROPHILES OCC
[2016-12-09 11:00] LABS: BE (BASE EXCESS) -11.5 MEQ/L (0 +/- 2.5); CARBOXYHEMOGLOBIN 1.2 % (0-3); DEVICE HFNC; HCO3 (ACTUAL BICARBONATE) 12.9 MEQ/L (23-27); HEMOBLOGIN CONTENT 12.9 G/DL (14-18); INSTRUMENT SERIAL # 35151; METHEMOGLOBIN 0.7 % (0-3); O2 CONTENT 17.6 VOL% (18-24); PCO2 (CO2 TENSION) 26 MMHG (35-45); PO2 (O2 TENSION) 111 MMHG (79-93); SAMPLE Arterial; pH 7.32 (7.37-7.43)
[2016-12-09 16:17] LABS: HEMATOCRIT 30.5 % (40.0-51.0); MEAN CORPUS HGB CONC 36.1 g/dL (32.0-36.0); MEAN CORPUSCULAR HEMOGLOB 33.6 pg (26.0-34.0); MEAN CORPUSCULAR VOLUME 93.3 fL (80-100); MEAN PLATELET VOLUME 9.8 fL (9.2-13.0); NUCLEATED RED BLOOD CELLS 1.3 /100WBC (0-0); PLATELET COUNT 117 10/3/uL (150-400); RBC DISTRIBUTION WIDTH 18.2 % (12.0-16.0); RED CELL COUNT 3.27 10/6/uL (4.7-6.1); WHITE BLOOD CELLS 18.3 10/3/uL (4.5-10.5)
[2016-12-09 16:18] LABS: MANUAL DIFF YES %
[2016-12-09 16:27] LABS: CHLORIDE, SERUM 97 MMOL/L (96-112); GLUCOSE, SERUM 83 MG/DL (60-99); POTASSIUM, SERUM 5.3 MMOL/L (3.5-5.3); SODIUM, SERUM 131 MMOL/L (135-148)
[2016-12-09 16:30] LABS: BUN (BLOOD UREA NITROGEN) 70 MG/DL (6-23); CO2 (CARBON DIOXIDE) 14 MMOL/L (24-34)
[2016-12-09 16:31] LABS: CALCIUM, SERUM 6.8 MG/DL (8.5-10.4); CREATININE 6.72 MG/DL (0.70-1.30); GFR AFRICAN AMERICAN 9 ML/MIN (>=60); GFR NON AFRICAN AMERICAN 8 ML/MIN (>=60); PHOSPHORUS, SERUM 6.6 MG/DL (2.5-4.5)
[2016-12-09 16:39] LABS: ANISOCYTOSIS 1+ (5-10/OIF) (0-5/OIF); BAND NEUTROPHILS 8 %; LYMPHOCYTES 3 %; LYMPHOCYTES ABSOLUTE (CALC) 0.55 10/3/uL (0.67-4.30); MONOCYTES 4 %; MONOCYTES ABSOLUTE (CALC) 0.73 10/3/uL (0.21-1.20); NEUTROPHILS ABSOLUTE (CALC) 17.02 10/3/uL (2.02-8.40); PLATELET ESTIMATE SLT DEC (ADEQUATE); SEGMENTED NEUTROPHIL (0) 85 %; TOTAL NUCLEATED CELLS 100
[2016-12-09 16:40] LABS: BURR CELLS 1+ (3-10/OIF) (0-2/OIF)
[2016-12-09 17:52] LABS: PROCALCITONIN 0.81 ng/mL (<0.5)
[2016-12-09 18:43] LABS: BE (BASE EXCESS) -10.7 MEQ/L (0 +/- 2.5); CARBOXYHEMOGLOBIN 1.2 % (0-3); HCO3 (ACTUAL BICARBONATE) 12.9 MEQ/L (23-27); HEMOBLOGIN CONTENT 11.4 G/DL (14-18); INSTRUMENT SERIAL # 35151; METHEMOGLOBIN 0.5 % (0-3); O2 CONTENT 15.4 VOL% (18-24); PCO2 (CO2 TENSION) 23 MMHG (35-45); PO2 (O2 TENSION) 93 MMHG (79-93); SAMPLE Arterial; pH 7.37 (7.37-7.43)
[2016-12-09 20:25] LABS: ALLENS TEST Pos; BE (BASE EXCESS) -10.7 MEQ/L (0 +/- 2.5); CARBOXYHEMOGLOBIN 1.1 % (0-3); HEMOBLOGIN CONTENT 11.8 G/DL (14-18); INSTRUMENT SERIAL # 35151; METHEMOGLOBIN 0.7 % (0-3); MODE CMV; O2 CONTENT 16.3 VOL% (18-24); OPERATOR ID 23712; PCO2 (CO2 TENSION) 45 MMHG (35-45); PO2 (O2 TENSION) 145 MMHG (79-93); SAMPLE Arterial; TIDAL VOLUME 550 ML; pH 7.19 (7.37-7.43)
[2016-12-09 21:29] LABS: ALLENS TEST Pos; BE (BASE EXCESS) -10.8 MEQ/L (0 +/- 2.5); CARBOXYHEMOGLOBIN 1.2 % (0-3); HCO3 (ACTUAL BICARBONATE) 14.9 MEQ/L (23-27); HEMOBLOGIN CONTENT 11.5 G/DL (14-18); INSTRUMENT SERIAL # 35151; METHEMOGLOBIN 0.7 % (0-3); MODE A/C; O2 CONTENT 14.8 VOL% (18-24); OPERATOR ID 35785; PCO2 (CO2 TENSION) 33 MMHG (35-45); PO2 (O2 TENSION) 76 MMHG (79-93); SAMPLE Arterial; TIDAL VOLUME 600 ML; pH 7.28 (7.37-7.43)
== END 2016-12-09 23:00 | disposition short-term general hospital (02) | DRG 441 ==
LOC: ER 13:13 → IMCU 18:35 → CCU 12-08 07:29 → IMCU 12-08 07:34 → CCU 12-08 07:57
PROVIDERS: Emergency Medicine; Hospitalist; Internal Medicine Hepatology; Internal Medicine Nephrology; Internal Medicine Pulmonary Disease
PROC: 02HV33Z Insertion of Infusion Device into Superior Vena Cava, Percutaneous Approach (ICD-10-PCS; principal; 2016-12-07)
PROC: 4A02X4A Measurement of Cardiac Electrical Activity, Guidance, External Approach (ICD-10-PCS; 2016-12-07)
PROC: 05HM33Z Insertion of Infusion Device into Right Internal Jugular Vein, Percutaneous Approach (ICD-10-PCS; 2016-12-08)
PROC: B543ZZA Ultrasonography of Right Jugular Veins, Guidance (ICD-10-PCS; 2016-12-08)
PROC: 5A1945Z Respiratory Ventilation, 24-96 Consecutive Hours (ICD-10-PCS; 2016-12-09)
PROC: 0BH17EZ Insertion of Endotracheal Airway into Trachea, Via Natural or Artificial Opening (ICD-10-PCS; 2016-12-09)
DX: K76.7 Hepatorenal syndrome (principal); K72.00 Acute and subacute hepatic failure without coma; N17.0 Acute kidney failure with tubular necrosis; J96.21 Acute and chronic respiratory failure with hypoxia; I95.9 Hypotension, unspecified; R18.8 Other ascites; E87.2 Acidosis; E87.1 Hypo-osmolality and hyponatremia; K76.6 Portal hypertension; K74.60 Unspecified cirrhosis of liver; K92.2 Gastrointestinal hemorrhage, unspecified; E86.0 Dehydration; E87.5 Hyperkalemia; E87.6 Hypokalemia; K75.81 Nonalcoholic steatohepatitis (NASH); E11.9 Type 2 diabetes mellitus without complications; K80.20 Calculus of gallbladder without cholecystitis without obstruction; N28.1 Cyst of kidney, acquired; R00.1 Bradycardia, unspecified; E78.9 Disorder of lipoprotein metabolism, unspecified; D64.9 Anemia, unspecified; E66.9 Obesity, unspecified; Z96.659 Presence of unspecified artificial knee joint; T50.991A Poisoning by other drugs, medicaments and biological substances, accidental (unintentional), initial encounter; D50.0 Iron deficiency anemia secondary to blood loss (chronic); Z66 Do not resuscitate; Z83.3 Family history of diabetes mellitus; Z98.890 Other specified postprocedural states
CPT/HCPCS: 31720; 36415; 36569; 36600; 71010; 74000; 74176; 76705; 80048; 80053; 80069; 80076; 82140; 82150; 82248; 82330; 82533; 82550; 82803; 82805; 82947; 82962; 83036; 83605; 83690; 83735; 83880; 84100; 84132; 84145; 84295; 85014; 85018; 85025; 85610; 85730; 86850; 86900; 86901; 87040; 93005; 94002; 94640; 94770; 96372; 96374; 96375; 99291; A9270-GY; C1751; C1752; C1894; C9113; J0610; J0692; J1720; J2405; J2550; J3010; J3370; P9047; P9059